=== PATIENT | female | born 1970 | race Caucasian/White ===

== ENCOUNTER → 2017-10-07 07:39 | Outpatient (CLI) | payer OTHER, SELFPAY ==
[2017-10-07 10:25] LABS: Estradiol 42.9 pg/mL
[2017-10-07 12:47] LABS: Progesterone Level 6.43 ng/mL (See Comment)
== END ==
PROVIDERS: Family Provider Nurse Practitioner; PCP Nurse Practitioner; Visit Provider Specialist
DX: N95.1 Menopausal and female climacteric states (principal)
CPT/HCPCS: 36415; 82670; 84144; 84403

== ENCOUNTER 2018-10-08 08:11 | Emergency (ER) | payer OTHER, SELFPAY ==
[2018-10-08 08:12] VITALS: BP 132/72; PULSE 80; RESP 16; TEMP 36; BMI 26.6
[2018-10-08] MEDS: dexAMETHasone 4 MG Tablet 8 MG PO (08:40)
--- NOTE | 2018-10-08 08:40 | ED.VIS.GEN ---
History of Present Illness Chief Complaint: Allergic Reaction Informant: Patient Onset: Yesterday Current Severity: Mild Narrative: Patient presents complaining of right upper eyelid type swelling that occurred yesterday immediately as she states she was bitten by a flying insect and felt the sting, she had some swelling this morning the swelling persisted she came in for evaluation, she did not see the insect but immediately felt the sting, she has no systemic symptoms, she has no change in vision shortness of breath, she denies any past history no medications Past Medical History - Allergies and Home Meds Allergies/Adverse Reactions: Allergies No Known Allergies Allergy (Verified 10/08/18 08:15) Primary Care Physician: Estrellita Ni NP-C [Primary Care Provider] - Past Medical History: None Smoking Status: Former smoker Review of Systems General: Reports: - - See above. Denies: Chills, Fever, Sweats Eyes: Denies: Visual changes - bilaterally, Diplopia ENT: Denies: Rhinorrhea, Sore throat Cardiovascular: Denies: Chest pain, Palpitations Respiratory: Denies: Dyspnea, Cough, Dyspnea on exertion Gastrointestinal: Denies: Abdominal pain, Nausea, Vomiting, Diarrhea, Melena, Hematochezia Genitourinary: Denies: Dysuria, Hematuria, Frequency Musculoskeletal: Denies: Back pain, Extremity Pain Skin: Denies: Rash, Wounds Neurological: Denies: Headache, Weakness, Numbness Physical Exam Vital Signs/Narrative: Vital Signs Temp Pulse Resp BP 10/08/18 08:12 96.8 F L 80 16 132/72 H General: Well nourished, Well developed, No Acute Distress Head: Normocephalic, Atraumatic Eyes: Perrl, EOMI, - - He has edema and allergic type reaction of the skin involving the right upper brow minimally to the right upper lid there is no fluctuance crepitance warmth or signs of infection the eye exam is entirely unremarkable normal vision normal conjunctiva normal pupillary and extra muscle movements the rest of her face HEENT exam are entirely unremarkable ENT: Moist mucous membranes, No rhinorrhea Neck: Supple, Nontender Cardiovascular: Regular rate, Regular rhythm, No murmurs Respiratory: No distress, CTA bilaterally, Chest nontender Abdomen: Soft, Nontender, Nondistended, Normal bowel sounds Back: Nontender, Normal Inspection Extremities: Nontender, No edema Skin: Normal color, No rash Neurological: Alert, Oriented x3, Cranial nerves II-XII grossly intact, Normal Strength, Normal Sensation Psychological: Normal affect, Normal Mood Diagnostic/Tx/Re-eval - Medical Decision Making I had a long conversation to her she seems to have a localized reaction distention given oral Decadron she will use [id number] antihistamines ice hydrocortisone locally and follow-up with your family doctor as is in the day and return for change in symptoms Home stable Allergic reaction right brow upper eyelid ED Disposition - Plan for ED Patient: Diagnosis: Allergic reaction Instructions: ALLERGIC REACTION, Other (Local), ALLERGIC REACTION, Insect (General) Referrals: Estrellita Ni, DIGITAL HARDWARE DESIGN ENGINEER-C [Primary Care Provider] -
== END 2018-10-08 08:49 | disposition home or self-care (01) ==
LOC: ED 08:46
PROVIDERS: Emergency Provider Emergency Medicine; Family Provider Nurse Practitioner; PCP Nurse Practitioner
DX: T63.481A Toxic effect of venom of other arthropod, accidental (unintentional), initial encounter (principal); R22.0 Localized swelling, mass and lump, head; Y92.9 Unspecified place or not applicable; Z87.891 Personal history of nicotine dependence
CPT/HCPCS: 99283

== ENCOUNTER → 2018-10-17 | Outpatient (CLI) | payer OTHER, SELFPAY ==
[2018-10-08 08:12] VITALS: BMI 26.6
[2018-10-17 10:34] LABS: Progesterone Level 0.07 ng/mL (See Comment); Vitamin B12 734 pg/mL (211-911); Vitamin D,25 Hydroxy 23.2 ng/mL (29.95-100.01)
[2018-10-17 10:42] LABS: Estradiol < 11.0 pg/mL; Follicle Stimulating Hormone 123.5 mIU/mL; Thyroid Stim Hormone (TSH) 1.35 uIU/mL (0.358-3.74)
[2018-10-18 11:04] LABS: DHEA Sulfate 79.1 ug/dL (41.2-243.7)
== END | disposition home or self-care (01) ==
LOC: MTLAB 08:43
PROVIDERS: Family Provider Nurse Practitioner; PCP Nurse Practitioner; Referring Provider Specialist; Visit Provider Specialist
DX: E55.9 Vitamin D deficiency, unspecified (principal); N95.8 Other specified menopausal and perimenopausal disorders; R53.83 Other fatigue
CPT/HCPCS: 36415; 82306; 82607; 82627; 82670; 83001; 84144; 84403; 84443; 82626

== ENCOUNTER → 2019-03-23 11:03 | Outpatient (CLI) | payer OTHER, SELFPAY | PROVIDERS: Family Provider Nurse Practitioner; PCP Nurse Practitioner; Referring Provider Nurse Practitioner; Visit Provider Nurse Practitioner | DX: R00.2 Palpitations (principal) | CPT/HCPCS: 93225; 93226 ==

== ENCOUNTER → 2019-05-17 20:00 | Outpatient (CLI) | payer OTHER, SELFPAY ==
[2019-05-08 14:59] VITALS: BMI 29.7
== END ==
PROVIDERS: PCP Nurse Practitioner; Referring Provider Internal Medicine Cardiovascular Disease; Visit Provider Internal Medicine Cardiovascular Disease
DX: G47.10 Hypersomnia, unspecified (principal); R53.83 Other fatigue; R00.2 Palpitations; R06.83 Snoring
CPT/HCPCS: 95810

== ENCOUNTER → 2019-05-25 15:06 | Outpatient (CLI) | payer OTHER, SELFPAY ==
[2019-05-08 14:59] VITALS: BMI 29.7
--- NOTE | 2019-05-25 15:09 | ECHOD_ITS ---
Reason For Study: PALPITATIONS Procedure This was a 2D Doppler, Color Flow transthoracic echocardiogram. Exam performed in department. Left Ventricle Normal size and thickness. The estimated ejection fraction is 65 %. Normal diastology for age. No regional wall motion abnormalities noted. Right Ventricle Mildly dilated right ventricle. Normal systolic function. Atria Normal left atrium. Normal right atrium. Normal atrial septum. Mitral Valve The mitral valve is structurally normal. No prolapse or stenosis seen. Tricuspid Valve Normal tricuspid valve. Mild (1+) tricuspid valve insufficiency. Right ventricular systolic pressure estimated to be 25 mmHg. Aortic Valve Normal aortic valve. Trisinus/trileaflet aortic valve. Pulmonic Valve Normal pulmonic valve. Great Vessels Normal aortic root. Normal arch. Normal inferior vena cava. Inferior vena cava collapse with sniff. Pericardium/Pleural No pericardial effusion. MMode/2D Measurements & Calculations LVIDd: 4.3 cm IVSd: 0.93 cm Ao root diam: 3.1 cm LVIDs: 2.6 cm LVPWd: 0.83 cm RVDd: 3.7 cm FS: 39.1 % LAV(MOD-bp): 43.4 ml LA A4 area: 16.8 cm2 LA dimension(2D): 3.9 cm LAV(MOD-bp) Indexed: 23.0 ml/m2 LAV(MOD-sp2): 44.4 ml LAV(MOD-sp4): 40.6 ml RA A4 area: 14.0 cm2 Time Measurements MV dec time: 0.18 sec Doppler Measurements & Calculations MV E max jossue: 71.9 cm/sec Lat Peak E' Jossue: 11.9 cm/sec Med Peak E' Jossue: 9.4 cm/sec MV A max jossue: 53.8 cm/sec E/E' lat: 6.1 E/E' med: 7.7 MV E/A: 1.3 Ao V2 max: 150.8 cm/sec LV V1 max: 150.8 cm/sec PA V2 max: 103.8 cm/sec Ao max P.1 mmHg LV V1 max P.1 mmHg TR max jossue: 223.2 cm/sec TR max P.9 mmHg Interpretation Summary The estimated ejection fraction is 65 %. Normal diastology for age. Mildly dilated right ventricle. Mild (1+) tricuspid valve insufficiency. Right ventricular systolic pressure estimated to be 25 mmHg. There is no comparison study available. Ordering Physician: Pop Castillo Referring Physician: STEPHANIE YOUNGBLOOD Performed By: Teresita Osborne, FARRUKH, RVT
== END ==
PROVIDERS: PCP Nurse Practitioner; Referring Provider Internal Medicine Cardiovascular Disease; Visit Provider Internal Medicine Cardiovascular Disease
DX: G47.10 Hypersomnia, unspecified (principal); R00.2 Palpitations
CPT/HCPCS: 93306

== ENCOUNTER → 2019-07-19 13:10 | Outpatient (CLI) | payer OTHER, SELFPAY ==
[2019-06-11 07:43] VITALS: BMI 29.7
== END ==
PROVIDERS: PCP Nurse Practitioner; Visit Provider Nurse Practitioner Acute Care
DX: Z00.00 Encounter for general adult medical examination without abnormal findings (principal)

== ENCOUNTER → 2019-07-20 11:43 | Outpatient (CLI) | payer OTHER, SELFPAY ==
[2019-06-11 07:43] VITALS: BMI 29.7
== END ==
PROVIDERS: PCP Nurse Practitioner; Visit Provider Nurse Practitioner Acute Care
DX: Z00.00 Encounter for general adult medical examination without abnormal findings (principal)

== ENCOUNTER 2019-08-19 05:12 | Emergency (ER) | payer OTHER, SELFPAY ==
[2019-06-11 07:43] VITALS: BMI 29.7
[2019-08-19 05:13] VITALS: BP 141/77; PULSE 75; RESP 16; TEMP 36.9; O2SAT 99; BMI 29.0
--- NOTE | 2019-08-19 05:34 | CT_ITS ---
STUDY: CT ABDOMEN AND PELVIS WITHOUT CONTRAST REASON FOR EXAM: Female, 48 years old. ABD PAIN X 5 DAYS RADIATION DOSAGE (If Supplied By Facility): CTDIvol = ( 10.47 ) mGy, DLP = ( 470.93 ) mGycm TECHNIQUE: Transaxial images were obtained from the dome of the diaphragm to the symphysis pubis without oral contrast, and without intravenous contrast. Sagittal and coronal images were reconstructed. Individualized dose optimization techniques were used for this CT. COMPARISON: None. FINDINGS: The visualized lung bases are unremarkable. The visualized portions of the heart are within normal limits. Normal liver. Normal gallbladder and extrahepatic biliary system. Normal spleen. Normal pancreas. Normal bilateral adrenal glands. Normal right kidney. Normal left kidney. Normal visualized stomach. Normal small intestine. Normal colon. The appendix is not identified. Normal abdominal aorta. Normal inferior vena cava. Normal retroperitoneum. Normal urinary bladder. Uterus and ovaries are unremarkable. There is NO ascites, free air, abscess or adenopathy. Normal abdominal wall. Normal osseous structures. CT/Abdomen/Pelvis without Cont IMPRESSION: Normal unenhanced CT of the abdomen and pelvis. Electronically Signed: Syed Lambert MD at 6:10 EDT , Service support ,
--- NOTE | 2019-08-19 05:37 | ED.VIS.GEN ---
History of Present Illness Chief Complaint: Back Informant: Patient Onset: Weeks - 1 Timing: Continuous Current Severity: Moderate Maximum Severity: Moderate Narrative: Patient presents with bilateral flank pain radiating to her lower abdominal region bilaterally for about a week. She denies fever chills cough or congestion she said this pain is worse when she takes a deep breath but she has no chest pain her pain is below her ribs in the flank region and lower back region as well as lower abdomen she has no fever chills cough congestion she has no difficulty breathing she has no lower extremity edema calf pain or any DVT or PE risk factors. She has no dysuria or hematuria she denies constipation, there is no diarrhea, there is no nausea or vomiting. The pain is somewhat worse with movement bending or twisting. Past Medical History - Allergies and Home Meds Allergies/Adverse Reactions: Allergies No Known Allergies Allergy (Verified 08/19/19 05:13) Primary Care Physician: Estrellita Ni NP-C [Primary Care Provider] - Past Medical History: - - Reviewed and unremarkable Smoking Status: Current every day smoker Review of Systems All systems negative except as indicated General: Denies: Fever Cardiovascular: Denies: Chest pain Respiratory: Denies: Dyspnea, Cough Gastrointestinal: Reports: Abdominal pain. Denies: Nausea, Vomiting, Diarrhea, Constipation Genitourinary: Denies: Dysuria, Hematuria Musculoskeletal: Reports: Back pain. Denies: Myalgias Skin: Denies: Rash Neurological: Denies: Headache, Weakness Endocrine: Denies: Polyuria Allergy: Denies: Uticaria Physical Exam Vital Signs/Narrative: Vital Signs Temp Pulse Resp BP Pulse Ox 08/19/19 05:13 98.4 F 75 16 141/77 H 99 General: Well nourished, Obese Eyes: Perrl, EOMI ENT: Moist mucous membranes Cardiovascular: Regular rate, Regular rhythm Respiratory: No distress, CTA bilaterally Abdomen: Soft, - - There is bilateral lower abdominal tenderness, there is no epigastric tenderness. The abdominal pain radiates into the back region bilaterally, this is at the CVA region and below. Back: - - No spinal tenderness, there is no tenderness over the rib region. Extremities: No edema Skin: No rash Neurological: Alert Psychological: Normal affect Diagnostic/Tx/Re-eval - Medical Decision Making Patient has abdominal pain and back pain, she has no chest pain or shortness of breath she does have a pleuritic component to this lower abdominal pain, I believe this is purely mechanical, I have thought about DVT or PE but she has no risk factors she is not tachycardic, she has no chest pain back pain or difficulty breathing. Otherwise she has a normal emergency department work-up she appears well I will discharge her with reassurance. ED Disposition - Plan for ED Patient: Disposition: Home or Assisted Living Diagnosis: Abdominal pain Referrals: Estrellita Ni NP-C [Primary Care Provider] - 3-5 Days Additional Instructions: Follow-up with your doctor for further testing otherwise in the emergency department urine had any signs or symptoms of any abdominal disorders. If you have chest pain or shortness of breath return right away to the emergency department.
[2019-08-19 06:02] LABS: Bacteria 0 SEEN /hpf (None Seen); Mucous, Urine 0 SEEN /hpf (<or=2+); Red Blood Cells-Urine 0 SEEN /hpf (0-5); White Blood Cells 0 SEEN /hpf (0-5)
[2019-08-19 06:03] LABS: Absolute Neutrophil Count 5.2 X10^3/uL (2.0-7.7); Basophil# 0.04 X10^3/uL; Basophil% 0.4 % (0-1); Eosinophil# 0.07 X10^3/uL; Eosinophils% 0.7 % (0-5); Hematocrit 40.3 % (37-47); Hemoglobin 13.3 g/dL (12.0-15.0); Lymphocyte % 35.9 % (19-41); Mean Corpuscular Hgb 31.8 pg (27.0-32.0); Mean Corpuscular Volume 96.4 fL (81-99); Mean Platelet Vol. 11.9 fl (6.2-12.0); Monocyte# 0.89 X10^3/uL; Monocyte% 9.1 % (0-10); NRBC Flagged by Analyzer 0 % (0-5); Neutrophil # 5.23 X10^3/uL (2.7-7.7); Neutrophil % 53.6 % (47-70); Platelet Count 166 K/mm3 (150-450); RBC Distribution Width CV 13.9 % (11.6-14.6); RBC Distribution Width SD 49.2 fl (35.1-43.9); Red Blood Count 4.18 M/mm3 (4.2-5.4); White Blood Count 9.8 K/mm3 (4.4-11.0)
[2019-08-19 06:04] LABS: Color, Urine Straw (Yellow); Glucose, Dipstick Normal (Normal); Ketone-Dipstick Negative (Negative); Leukocyte Esterase-Dipstick Negative /ul (Negative); Nitrite-Dipstick Negative (Negative); Occult Blood-Urine Negative /ul (Negative); Protein-Dipstick Negative (Negative); Specific Gravity, Urine 1.005 (1.002-1.030); Urine Bilirubin Dipstick Negative (Negative); Urine Clarity Sl. Cloudy (Clear); Urine Urobilinogen Normal (Normal)
[2019-08-19 06:21] LABS: AST(SGOT) 23 U/L (15-37); Alanine Aminotransfer ALT/SGPT 32 U/L (13-56); Albumin, Serum 3.3 g/dL (3.2-5.0); Alkaline Phosphatase 62 U/L (45-117); Anion Gap 6 (5-15); BUN 14 mg/dL (7-18); BUN/Creat Ratio 21.5 RATIO (10-20); Calcium,Total 9.2 mg/dL (8.5-10.1); Chloride 108 mmol/L (98-107); Creatinine, Serum 0.65 mg/dL (0.55-1.02); EST Glomerular Filtration Rate 102 mL/min (>60); Est Glom Filt Rate - Afr Amer 124 mL/min (>60); Estimated Creatinine Clearance 96.93 ml/min; Globulin 3.4 g/dL (2.2-4.2); Glucose 95 mg/dL (74-106); Lipase 101 U/L (73-393); Potassium 3.8 mmol/L (3.5-5.1); Protein, Total 6.7 g/dL (6.4-8.2); Sodium Level 140 mmol/L (136-145)
[2019-08-19 06:26] LABS: Squamous Epithelial Cells - UA 0-5 SEEN /hpf (5-10)
[2019-08-19 06:46] VITALS: BP 115/71; PULSE 63; RESP 18; O2SAT 97
== END 2019-08-19 07:04 | disposition home or self-care (01) ==
PROVIDERS: Emergency Provider Emergency Medicine; PCP Nurse Practitioner
DX: R10.30 Lower abdominal pain, unspecified (principal); F17.200 Nicotine dependence, unspecified, uncomplicated; E66.9 Obesity, unspecified
CPT/HCPCS: 74176; 80053; 81001; 83690; 85025; 96374; 96375; 99283; A4216; J2405

== ENCOUNTER 2020-09-16 19:30 | Emergency (ER) | payer OTHER, SELFPAY ==
[2020-09-16 19:31] VITALS: BP 134/71; PULSE 88; RESP 18; TEMP 36.2; O2SAT 100; BMI 29.7
[2020-09-16 20:17] LABS: Bacteria 0 SEEN /hpf (None Seen); Mucous, Urine 0 SEEN /hpf (<or=2+); Red Blood Cells-Urine 0 SEEN /hpf (0-5); Squamous Epithelial Cells - UA 0 SEEN /hpf (5-10)
[2020-09-16 20:18] LABS: Absolute Lymphocyte Count 4.83 X10^3/uL (0.83-4.51); Absolute Neutrophil Count 6.9 X10^3/uL (2.0-7.7); Basophil# 0.05 X10^3/uL; Basophil% 0.4 % (0-1); Eosinophils% 0.8 % (0-5); Hematocrit 42.6 % (37-47); Hemoglobin 13.8 g/dL (12.0-15.0); Lymphocyte # 4.83 X10^3/ul (0.83-4.51); Lymphocyte % 37.6 % (19-41); Mean Corp Hgb Conc 32.4 g/dL (32-36); Mean Corpuscular Hgb 31.7 pg (27.0-32.0); Mean Corpuscular Volume 97.7 fL (81-99); Mean Platelet Vol. 11.5 fl (6.2-12.0); Monocyte# 0.87 X10^3/uL; Monocyte% 6.8 % (0-10); NRBC Flagged by Analyzer 0 % (0-5); Neutrophil # 6.94 X10^3/uL (2.7-7.7); Platelet Count 214 K/mm3 (150-450); RBC Distribution Width CV 13.6 % (11.6-14.6); RBC Distribution Width SD 49.2 fl (35.1-43.9); Red Blood Count 4.36 M/mm3 (4.2-5.4); White Blood Count 12.8 K/mm3 (4.4-11.0)
[2020-09-16 20:24] LABS: Color, Urine Yellow (Yellow); Glucose, Dipstick Normal (Normal); Ketone-Dipstick Negative (Negative); Leukocyte Esterase-Dipstick 100 /ul (Negative); Nitrite-Dipstick Negative (Negative); Occult Blood-Urine Negative /ul (Negative); Protein-Dipstick Negative (Negative); Urine Bilirubin Dipstick Negative (Negative); Urine Clarity Clear (Clear); Urine Urobilinogen Normal (Normal)
[2020-09-16 20:32] LABS: Internal QC Validated? YES +Cl - CLEAR BKGD; Pregnancy, Serum, hCG Quali. NEGATIVE Negative
[2020-09-16 20:35] LABS: Anion Gap 6 (5-15); BUN 13 mg/dL (7-18); BUN/Creat Ratio 15.9 RATIO (10-20); Calcium,Total 9.9 mg/dL (8.5-10.1); Chloride 108 mmol/L (98-107); Creatinine, Serum 0.82 mg/dL (0.55-1.02); EST Glomerular Filtration Rate 78 mL/min (>60); Est Glom Filt Rate - Afr Amer 94 mL/min (>60); Estimated Creatinine Clearance 75.98 ml/min; Glucose 98 mg/dL (74-106); Potassium 3.8 mmol/L (3.5-5.1); Sodium Level 144 mmol/L (136-145)
[2020-09-16 20:36] LABS: White Blood Cells 0-5 SEEN /hpf (0-5)
--- NOTE | 2020-09-16 20:53 | CT_ITS ---
STUDY: CT ABDOMEN AND PELVIS WITH CONTRAST REASON FOR EXAM: Female, 49 years old. Abdominal pain RADIATION DOSAGE (If Supplied By Facility): CTDIvol = ( 13.185 ) mGy, DLP = ( 808.06 ) mGycm TECHNIQUE: Transaxial images were obtained from the dome of the diaphragm to the symphysis pubis without oral contrast. IV 100mL Isovue-370 was administered. Sagittal and coronal images were reconstructed. Individualized dose optimization techniques were used for this CT. COMPARISON: August 19, 2019 FINDINGS: The visualized lung bases are unremarkable. The visualized portions of the heart are within normal limits. Normal liver. The gallbladder is contracted. Normal spleen. Normal pancreas. Normal bilateral adrenal glands. Normal right kidney. Normal left kidney. Normal visualized stomach. Normal small intestine. Normal colon. The appendix is visualized and appears normal. Normal abdominal aorta. Normal inferior vena cava. Normal retroperitoneum. Normal urinary bladder. Normal visualized uterus. There is no free fluid in the abdomen or pelvis. Normal abdominal wall. Normal osseous structures. CT/Abdomen/Pelvis W IV Cont ONLY IMPRESSION: Normal enhanced CT of the abdomen and pelvis. No mass or obstruction. No stones or hydronephrosis. Electronically Signed: Arik Virk MD at 21:43 EDT , Service support ,
--- NOTE | 2020-09-16 20:55 | ED.VIS.GI ---
HPI HPI - GI History of Present Illness Chief Complaint: Abd Pain Narrative Narrative: 49-year-old female presenting with abdominal pain. She describes it as starting on the left lower abdomen and then gradually progressing to both sides of the abdomen anteriorly. Now it is radiating to the bilateral flanks. She states when she takes a deep breath this pain gets worse. She denies constipation. She states she is passing flatus. She does admit to some loose stool. She has not had a fever or chills. She has not had nausea or vomiting. She has no previous abdominal surgeries. PFSH PFS Medical History Balance disorder Dizziness Fatigue Hyperlipidemia Hypersomnia Lightheaded Palpitations Snoring Home Medications sertraline 50 mg PO DAILY 10/08/18 [History Last Taken Unknown] cholecalciferol (vitamin D3) 50 mcg (2,000 unit) tablet 2,000 unit PO QWEEK 05/07/19 [History Last Taken Unknown] Allergy/AdvReac Type Severity Reaction Status Date / Time No Known Allergies Allergy Verified 09/16/20 19:31 Family History Grandmother Hypertension Grandfather Alcoholism Social History Smoking Status: Current every day smoker tobacco type: cigarettes ROS ROS ED Constitutional Constitutional ED: Denies chills, fever(s) or sweats Eyes Eyes: Denies blurry vision or change in vision ENT ENT ED: Denies ear pain, rhinorrhea or sore throat Cardiovascular Cardiovascular: Denies chest pain, palpitations or racing heartbeat Respiratory/Chest Respiratory/Chest: Denies cough, dyspnea or sputum Gastrointestinal Gastrointestinal: Reports abdominal pain and diarrhea; Denies constipation or vomiting Genitourinary Genitourinary ED: Denies dysuria, hematuria or urinary frequency Musculoskeletal Musculoskeletal: Denies arthralgias, myalgias or neck pain Integumentary Denies abscess, Abrasions or rash Neurologic Neurologic: Denies headache(s), paresthesias or weakness Psychiatric Psychiatric: Denies anxiety, depression, suicidal ideation or suicidal thoughts Endocrine Endocrinology: Denies polydipsia or polyuria EXAM Physical Exam Const Vital Signs: 09/16/20 19:31 Temperature 97.1 F L Temperature Source Temporal Pulse Rate 88 Respiratory Rate 18 Blood Pressure 134/71 H Blood Pressure Mean 92 Pulse Ox 100 Oxygen Delivery Method Room Air Positive well nourished General Appearance ED: NAD HEENT normocephalic and atraumatic Eyes PERRL and EOMs intact bilaterally Resp normal respiratory effort and clear to auscultation bilaterally Cardio regular rate and regular rhythm GI Inspection: abdominal distention Palpation: soft Extremity full ROM General Extremety ED: Yes edema General Extremity: edema Neuro Sensorium / Orientation: alert, oriented to person and oriented to place Psych mental status grossly normal and thought process normal Skin Lesions: no lesions Rashes: no rashes MDM MDM MDM Narrative Medical decision making narrative: Patient presenting for abdominal pain. She was given morphine and Zofran with relief of her pain. Her lab work so she has a slight leukocytosis of 12.8 without a left shift. Renal function electrolytes are normal. hCG is negative. Urinalysis is negative. CT of the abdomen and pelvis is interpreted by the radiologist as no acute intra-abdominal process. The source of the patient's pain is unclear at this point. I feel she is safe to be discharged home however since she has normal vital signs and a negative work-up. Patient is given return precautions. Impression: 1. Abdominal pain Lab Data Labs: Laboratory Results - last 24 hr 09/16/20 09/16/20 09/16/20 20:10 20:10 20:10 WBC 12.8 H RBC 4.36 Hgb 13.8 Hct 42.6 MCV 97.7 MCH 31.7 MCHC 32.4 RDW Std Deviation 49.2 H RDW Coeff of Cheryle 13.6 Plt Count 214 MPV 11.5 Immature Gran % (Auto) 0.400 Neut % (Auto) 54.0 Lymph % (Auto) 37.6 [place] % (Auto) 6.8 Eos % (Auto) 0.8 Baso % (Auto) 0.4 Absolute Neuts (auto) 6.9 Absolute Lymphs (auto) 4.83 H Nucleated RBC % 0 Sodium 144 Potassium 3.8 Chloride 108 H Carbon Dioxide 30.0 Anion Gap 6 BUN 13 Creatinine 0.82 Estim Creat Clear Calc 75.98 Est GFR (MDRD) Af Amer 94 Est GFR (MDRD) Non-Af 78 BUN/Creatinine Ratio 15.9 Glucose 98 Calcium 9.9 Serum , Qual NEGATIVE Urine Color Urine Clarity Urine pH Ur Specific [place] Urine Protein Urine Glucose (UA) Urine Ketones Urine Occult Blood Urine Nitrite Urine Bilirubin Urine Urobilinogen Ur Leukocyte Esterase Urine RBC Urine WBC Ur Squamous Epith Cells Urine Bacteria Urine Mucus 09/16/20 20:10 WBC RBC Hgb Hct MCV MCH MCHC RDW Std Deviation RDW Coeff of Cheryle Plt Count MPV Immature Gran % (Auto) Neut % (Auto) Lymph % (Auto) [place] % (Auto) Eos % (Auto) Baso % (Auto) Absolute Neuts (auto) Absolute Lymphs (auto) Nucleated RBC % Sodium Potassium Chloride Carbon Dioxide Anion Gap BUN Creatinine Estim Creat Clear Calc Est GFR (MDRD) Af Amer Est GFR (MDRD) Non-Af BUN/Creatinine Ratio Glucose Calcium Serum , Qual Urine Color Yellow Urine Clarity Clear Urine pH 7.0 Ur Specific [place] 1.010 Urine Protein Negative Urine Glucose (UA) Normal Urine Ketones Negative Urine Occult Blood Negative Urine Nitrite Negative Urine Bilirubin Negative Urine Urobilinogen Normal Ur Leukocyte Esterase 100 H Urine RBC 0 SEEN Urine WBC 0-5 SEEN Ur Squamous Epith Cells 0 SEEN Urine Bacteria 0 SEEN Urine Mucus 0 SEEN Radiography Diagnostic Testing: Radiology Impression Abdomen/Pelvis CT 09/16/20 20:53 IMPRESSION: Normal enhanced CT of the abdomen and pelvis. No mass or obstruction. No stones or hydronephrosis. Electronically Signed: Arik Virk MD at 21:43 EDT , Service support , Discharge Plan Triage Chief Complaint: Abd Pain ED Provider: Leighton Finnegan Dx/Rx/DC Orders Instructions: ED Abdominal Pain Unkn Cause Fem Prescriptions: No Action cholecalciferol (vitamin D3) 2,000 unit tablet 2,000 unit PO QWEEK RF: 0 sertraline 50 MG tablet 50 mg PO DAILY RF: 0 Primary Care Provider: Estrellita Ni NP Referrals: Estrellita Ni OPTICAL INSTRUMENT ASSEMBLY SUPERVISOR, OPTICAL INSTRUMENT ASSEMBLY SUPERVISOR-C [Primary Care Provider] - Disposition Disposition: Home, self care Discharge Date/Time: 09/16/20 22:39
== END 2020-09-16 22:39 | disposition home or self-care (01) ==
LOC: ED 21:26
PROVIDERS: Emergency Provider Student in an Organized Health Care Education/Training Program; PCP Nurse Practitioner
DX: R10.9 Unspecified abdominal pain (principal); F17.210 Nicotine dependence, cigarettes, uncomplicated; R19.7 Diarrhea, unspecified; Z79.899 Other long term (current) drug therapy
CPT/HCPCS: 74177; 80048; 81001; 84703; 85025; 99283; Q9967; A4216

== ENCOUNTER 2022-06-25 17:36 | Emergency (ER) | payer OTHER, SELFPAY ==
[2022-06-25 17:37] VITALS: BP 144/84; PULSE 81; RESP 18; TEMP 36.6; O2SAT 99; BMI 28.2
--- NOTE | 2022-06-25 19:06 | EDS_ITS ---
HPI HPI - GI History of Present Illness Chief Complaint: Abd Pain Narrative Narrative: 51-year-old female presenting with abdominal pain. She describes it as diffuse and crampy. She states it feels like contractions. Patient states this has been coming and going since about 2 PM today. Last meal was this morning when she ate eggs, abdul, ice cream. This was about 8:00 in the morning and her pain started several hours later. No fevers, chills, body aches. She states she has soft stool but is not constipated. No urinary complaints or vaginal complaints. Patient states she had this several months ago and it lasted about a day. She never went to a doctor for it. She states it resolved on its own. No history of abdominal surgeries. She states she has no medical problems. PFSH PFSH Medical History Balance disorder Dizziness Fatigue Hyperlipidemia Hypersomnia Lightheaded Palpitations Snoring Home Medications sertraline 50 mg tablet 50 mg PO DAILY 10/08/18 [History Last Taken Unknown] cholecalciferol (vitamin D3) 50 mcg (2,000 unit) tablet 2,000 unit PO QWEEK 05/07/19 [History Last Taken Unknown] dicyclomine 10 mg capsule 10 mg PO TID PRN Abdominal cramping #14 caps 06/25/22 [Rx Last Taken Unknown] ondansetron 4 mg disintegrating tablet 4 mg PO Q8H PRN PRN Nausea #14 tabs 06/25/22 [Rx Last Taken Unknown] Allergy/AdvReac Type Severity Reaction Status Date / Time No Known Allergies Allergy Verified 06/25/22 17:39 Family History Grandmother Hypertension Grandfather Alcoholism Social History Smoking Status: Current every day smoker tobacco type: cigarettes ROS ROS ED Constitutional Constitutional ED: Denies chills or fever(s) ENT ENT ED: Denies rhinorrhea or sore throat Cardiovascular Cardiovascular: Denies chest pain or palpitations Respiratory/Chest Respiratory/Chest: Denies cough or dyspnea Gastrointestinal Gastrointestinal: Reports abdominal pain, nausea and vomiting Genitourinary Genitourinary ED: Denies dysuria or hematuria Musculoskeletal Musculoskeletal: Denies arthralgias or back pain Integumentary Denies abscess or Abrasions Neurologic Neurologic: Denies headache(s) or paresthesias Psychiatric Psychiatric: Denies anxiety or depression EXAM Physical Exam Const Vital Signs: 06/25/22 17:37 06/25/22 21:25 Temperature 98 F Temperature Source Temporal Pulse Rate 81 64 Respiratory Rate 18 16 Blood Pressure 144/84 H 138/82 H Blood Pressure Mean 104 100 Pulse Ox 99 99 Oxygen Delivery Method Room Air Room Air Positive well nourished General Appearance ED: NAD; Negative for pallor HEENT Reports moist mucous membranes normocephalic Eyes PERRL General Eye ED: Yes scleral icterus Resp normal respiratory effort Effort and Inspection: Negative for respiratory distress Cardio regular rate and regular rhythm GI GI Narrative: Diffuse generalized tenderness. Abdomen is soft. No rebound or guarding. No masses. No hernia. Neuro CN's II-XII intact bilaterally Sensorium / Orientation: alert Psych mental status grossly normal Skin no wounds General Skin Exam: Negative for jaundice or pallor MDM MDM MDM Narrative Medical decision making narrative: Patient presenting with abdominal pain which is fairly diffuse. She describes nausea and vomiting as well. Abdomen is soft nontender nondistended. No focal area of pain. No Teran sign. No McBurney point tenderness. No peritoneal signs. Differential includes but is not limited to GERD, gastritis, peptic ulcer disease, acute cholecystitis, acute cholelithiasis, appendicitis, diverticulitis, pancreatitis, small bowel obstruction, perforated bowel, viral etiology, food poisoning. Patient states he has had this pain before and it went away on its own. She was told by her primary care that she should probably take a [id number] antacid. Less likely felt to be her gallbladder because she does not have rivas right upper quadrant pain. CBC to assess white blood cell count, hemoglobin, platelets, differential. CMP to assess liver function, renal function, electrolytes, glucose, anion gap. Lipase to assess for pancreatitis. Medicated with 4 mg of morphine and 4 mg of Zofran. She is given a liter of normal saline. Patient's blood work shows a normal white blood cell count. Hemoglobin macular stable. Platelets are normal. Renal function, liver function, electrolytes all within normal limits. Urinalysis negative. I do not believe the patient needs a CT scan of the abdomen given her normal blood work- up. On reevaluation she is pain-free and states she is high from the morphine. After discussing this with she and her her tells me she has severe gas and he is concerned that this might be causing the problem. I did school counselor him that this could be causing a problem because her blood work was normal. I again stated I do not think they needed a CT scan and they agree d. Patient was given Zofran and Bentyl for home. She already takes Gas-X. Return precautions were discussed. Impression: 1. Abdominal pain 2. Nausea/vomiting Lab Data Labs: Laboratory Results - last 24 hr 06/25/22 06/25/22 06/25/22 19:13 19:13 20:15 WBC 9.7 RBC 4.36 Hgb 13.8 Hct 42.0 MCV 96.3 MCH 31.7 MCHC 32.9 RDW Std Deviation 46.8 H RDW Coeff of Cheryle 13.2 Plt Count 208 MPV 11.1 Immature Gran % (Auto) 0.300 Neut % (Auto) 66.1 Lymph % (Auto) 22.6 [place] % (Auto) 10.1 H Eos % (Auto) 0.5 Baso % (Auto) 0.4 Absolute Neuts (auto) 6.4 Absolute Lymphs (auto) 2.19 Nucleated RBC % 0 Sodium 140 Potassium 4.0 Chloride 109 H Carbon Dioxide 28.0 Anion Gap 3 L BUN 11 Creatinine 0.69 Estim Creat Clear Calc 88.27 Est GFR (MDRD) Af Amer 115 Est GFR (MDRD) Non-Af 95 BUN/Creatinine Ratio 16.0 Glucose 103 Calcium 9.6 Total Bilirubin 0.20 AST 29 ALT 40 Alkaline Phosphatase 86 Total Protein 7.1 Albumin 3.6 Globulin 3.5 Albumin/Globulin Ratio 1.0 Lipase 114 Urine Color Yellow Urine Clarity Sl. Cloudy Urine pH 7.0 Ur Specific [place] 1.010 Urine Protein Negative Urine Glucose (UA) Normal Urine Ketones Negative Urine Occult Blood Negative Urine Nitrite Negative Urine Bilirubin Negative Urine Urobilinogen Normal Ur Leukocyte Esterase 25 H Urine RBC 0 SEEN Urine WBC 0-5 SEEN Ur Squamous Epith Cells 5-10 SEEN Amorphous Sediment 1+ Urine Bacteria 0 SEEN Urine Mucus 0 SEEN Discharge Plan Triage Chief Complaint: Abd Pain ED Provider: Leighton Finnegan Dx/Rx/DC Orders Instructions: ED Abdominal Pain Unkn Cause Fem Prescriptions: New dicyclomine 10 mg capsule 10 mg PO TID PRN (Reason: Abdominal cramping) Qty: 14 0RF ondansetron 4 mg tablet,disintegrating 4 mg PO Q8H PRN PRN (Reason: Nausea) Qty: 14 0RF No Action cholecalciferol (vitamin D3) 2,000 unit tablet 2,000 unit PO QWEEK sertraline 50 MG tablet 50 mg PO DAILY Primary Care Provider: Madeleine Mendez NP Referrals: Estrellita Ni DESIGNER AND PATTERNMAKER, DESIGNER AND PATTERNMAKER-C [Non-Staff] - Disposition Disposition: Home, Self Care Discharge Date/Time: 06/25/22 21:50
[2022-06-25] MEDS: 0.9% Normal Saline 1,000 ML 1000 ML IV (19:18)
[2022-06-25] MEDS: Ondansetron 4 MG/2 ML Vial IV (19:19)
[2022-06-25] MEDS: Morphine 4 MG/ML Syringe IV (19:19)
[2022-06-25 19:20] LABS: Absolute Lymphocyte Count 2.19 X10^3/uL (0.83-4.51); Absolute Neutrophil Count 6.4 X10^3/uL (2.0-7.7); Basophil# 0.04 X10^3/uL; Basophil% 0.4 % (0-1); Eosinophil# 0.05 X10^3/uL; Eosinophils% 0.5 % (0-5); Hemoglobin 13.8 g/dL (12.0-15.0); Lymphocyte # 2.19 X10^3/ul (0.83-4.51); Lymphocyte % 22.6 % (19-41); Mean Corp Hgb Conc 32.9 g/dL (32-36); Mean Corpuscular Hgb 31.7 pg (27.0-32.0); Mean Corpuscular Volume 96.3 fL (81-99); Mean Platelet Vol. 11.1 fl (6.2-12.0); Monocyte# 0.98 X10^3/uL; Monocyte% 10.1 % (0-10); NRBC Flagged by Analyzer 0 % (0-5); Neutrophil # 6.39 X10^3/uL (2.7-7.7); Neutrophil % 66.1 % (47-70); Platelet Count 208 K/mm3 (150-450); RBC Distribution Width CV 13.2 % (11.6-14.6); RBC Distribution Width SD 46.8 fl (35.1-43.9); Red Blood Count 4.36 M/mm3 (4.2-5.4); White Blood Count 9.7 K/mm3 (4.4-11.0)
[2022-06-25 19:49] LABS: AST(SGOT) 29 U/L (15-37); Alanine Aminotransfer ALT/SGPT 40 U/L (13-56); Albumin, Serum 3.6 g/dL (3.2-5.0); Alkaline Phosphatase 86 U/L (45-117); Anion Gap 3 (5-15); BUN 11 mg/dL (7-18); Calcium,Total 9.6 mg/dL (8.5-10.1); Chloride 109 mmol/L (98-107); Creatinine, Serum 0.69 mg/dL (0.55-1.02); EST Glomerular Filtration Rate 95 mL/min (>60); Est Glom Filt Rate - Afr Amer 115 mL/min (>60); Estimated Creatinine Clearance 88.27 ml/min; Globulin 3.5 g/dL (2.2-4.2); Glucose 103 mg/dL (74-106); Lipase 114 U/L (73-393); Protein, Total 7.1 g/dL (6.4-8.2); Sodium Level 140 mmol/L (136-145)
[2022-06-25 20:18] LABS: Bacteria 0 SEEN /hpf (None Seen); Mucous, Urine 0 SEEN /hpf (<or=2+); Red Blood Cells-Urine 0 SEEN /hpf (0-5)
[2022-06-25 20:36] LABS: Color, Urine Yellow (Yellow); Glucose, Dipstick Normal (Normal); Ketone-Dipstick Negative (Negative); Leukocyte Esterase-Dipstick 25 /ul (Negative); Nitrite-Dipstick Negative (Negative); Occult Blood-Urine Negative /ul (Negative); Protein-Dipstick Negative (Negative); Urine Bilirubin Dipstick Negative (Negative); Urine Clarity Sl. Cloudy (Clear); Urine Urobilinogen Normal (Normal)
[2022-06-25 20:45] LABS: Amorphous Sediment 1+; Squamous Epithelial Cells - UA 5-10 SEEN /hpf (5-10); White Blood Cells 0-5 SEEN /hpf (0-5)
[2022-06-25 21:25] VITALS: BP 138/82; PULSE 64; RESP 16; O2SAT 99
== END 2022-06-25 21:50 | disposition home or self-care (01) ==
PROVIDERS: Emergency Provider Student in an Organized Health Care Education/Training Program; PCP Nurse Practitioner Family; Visit Provider Student in an Organized Health Care Education/Training Program
DX: R10.9 Unspecified abdominal pain (principal); R11.2 Nausea with vomiting, unspecified; F17.210 Nicotine dependence, cigarettes, uncomplicated
CPT/HCPCS: 80053; 81001; 83690; 85025; 96361; 96374; 96375; 99282; J7030; A4216; J2405

== ENCOUNTER 2024-04-15 04:45 | Emergency (ER) | payer BC, SELFPAY ==
[2024-04-15 04:47] VITALS: BP 161/88; PULSE 75; RESP 18; TEMP 37.1; O2SAT 99; BMI 26.4
[2024-04-15 04:53] VITALS: O2SAT 99
--- NOTE | 2024-04-15 04:53 | EDS_ITS ---
HPI <Dr. Lyle Hunt DO - Last Filed: 04/16/24 23:12> History of Present Illness Chief Complaint: Chest Pain Informant: patient and spouse/S.O. Narrative Narrative: Presents private vehicle with skin other. Chest heaviness waking her approxi mately 2 AM this morning. Has been 3 hours ago. Mild pain to her back. Nausea with large vomiting there is no hematemesis. She had 3 bowel movements since then that was solid nonbloody. Currently not nauseated. Pain substernal. No history of similar. Tobacco history. Hyperlipidemia. No diabetes or hypertension. Denies family history of MIs at young age. No recent travel or surgeries. No history of PE or DVT. No recent cough. Reports her significant other had a heart attack this past year and was concerned. Patient did take Tums, symptoms subsiding. Last meal for dinner was nearly 12 hours ago. Reported having intermittent chills and sweats. Prior Similar Symptoms: No PFSH <Dr. Lyle Hunt DO - Last Filed: 04/16/24 23:12> PFSH Medical History History of transient ischemic attack Balance disorder Hypersomnia Fatigue Dizziness Lightheaded Snoring Hyperlipidemia Palpitations Home Medications ?Medication ?Instructions ?Recorded ?Last Taken ?Type sertraline 50 mg tablet 50 mg PO DAILY 10/08/18 Unknown History cholecalciferol (vitamin D3) 50 2,000 unit PO QWEEK 05/07/19 Unknown History mcg (2,000 unit) tablet pantoprazole 40 mg tablet,delayed 40 mg PO DAILY #30 tabs 04/15/24 Unknown Rx release Allergy/AdvReac Type Severity Reaction Status Date / Time No Known Allergies Allergy Verified 04/15/24 04:46 Family History Grandmother Hypertension Grandfather Alcoholism Surgical History No pertinent past surgical history Social History Smoking Status: Current every day smoker tobacco type: cigarettes alcohol intake: current substance use type: does not use ROS <Dr. Lyle Hunt DO - Last Filed: 04/16/24 23:12> ROS ED Constitutional Constitutional ED: Denies chills, fever(s) or sweats ENT ENT ED: Denies sore throat Cardiovascular Cardiovascular: Reports chest pain; Denies leg edema, palpitations or racing heartbeat Respiratory/Chest Respiratory/Chest: Denies cough, dyspnea or dyspnea on exertion Gastrointestinal Gastrointestinal: Reports vomiting; Denies abdominal pain, diarrhea or nausea Genitourinary Genitourinary ED: Denies dysuria, hematuria or urinary frequency Musculoskeletal Musculoskeletal: Denies back pain, extremity pain or neck pain Integumentary Denies rash or wounds Neurologic Neurologic: Denies headache(s), paresthesias or weakness EXAM <Dr. Lyle Hunt DO - Last Filed: 04/16/24 23:12> Physical Exam Const Vital Signs: 04/15/24 04:47 04/15/24 04:48 04/15/24 04:53 Temperature 98.7 F Temperature Source Oral Pulse Rate 75 Respiratory Rate 18 Respiratory Effort Normal Blood Pressure 161/88 H Blood Pressure Mean 112 Pulse Ox 99 99 Oxygen Delivery Method Room Air Room Air 04/15/24 05:45 04/15/24 06:00 04/15/24 07:00 Temperature Temperature Source Pulse Rate 79 75 69 Respiratory Rate 18 18 14 Respiratory Effort Blood Pressure 118/77 115/75 116/74 Blood Pressure Mean 90 88 88 Pulse Ox 96 98 95 Oxygen Delivery Method Room Air Room Air Room Air Positive well nourished and well developed General Appearance ED: well developed and NAD HEENT Reports moist mucous membranes normocephalic and atraumatic Eyes General Eye ED: Yes normal appearance of both eyes Neck full ROM Chest Wall Chest: Negative for tenderness Resp normal respiratory effort and normal air movement Effort and Inspection: symmetric chest movement; Negative for respiratory distress Cardio regular rate, regular rhythm and no murmurs Peripheral Pulses: pulses 2+ throughout GI normal to inspection, nondistended, normoactive bowel sounds and non-tender Palpation: Negative for guarding or rebound tenderness present Extremity normal to inspection General Extremety ED: Negative for edema or tenderness General Extremity: Negative for edema Neuro oriented x3 and no sensory deficits noted Sensorium / Orientation: awake and alert Skin no rashes or lesions noted and no wounds <Saulo Rubin MD - Last Filed: 04/15/24 07:32> Physical Exam Const Vital Signs: 04/15/24 04:47 04/15/24 04:48 04/15/24 04:53 Temperature 98.7 F Temperature Source Oral Pulse Rate 75 Respiratory Rate 18 Respiratory Effort Normal Blood Pressure 161/88 H Blood Pressure Mean 112 Pulse Ox 99 99 Oxygen Delivery Method Room Air Room Air 04/15/24 05:45 04/15/24 06:00 04/15/24 07:00 Temperature Temperature Source Pulse Rate 79 75 69 Respiratory Rate 18 18 14 Respiratory Effort Blood Pressure 118/77 115/75 116/74 Blood Pressure Mean 90 88 88 Pulse Ox 96 98 95 Oxygen Delivery Method Room Air Room Air Room Air <Dr. Lyle Hunt, DO - Last Filed: 04/16/24 23:12> Heart Score History: Slightly/Non-Suspicious ECG: Normal Age: >45 - <65 years Risk Factors: 1 or 2 Risk Factors Troponin: </= Normal Limit Score: 2 MDM <Dr. Lyle Hunt, DO - Last Filed: 04/16/24 23:12> MDM MDM Narrative Medical decision making narrative: Interventions / MDM: Differential diagnosis: Diagnosis considered but do not suspect: N/A My EKG interpretation: Sinus rate of 75, no ST changes, T wave version anterior leads V2, small T waves V3 V4. Compared to EKG in the system 2020, new T wave version V2. Imaging independently reviewed and interpreted by myself: 1 view chest x-ray: No acute process. External documents reviewed: N/A Test considered but not ordered:N/A ED course: Patient subsiding chest pain. No recent cough. No recent PE risk factors. Cardiac workup initiated. Aspirin ordered. 0535: Initial troponin 3. Creatinine 0.74. Hemoglobin 14.7. Potassium 3.9. Chest x-ray negative. Currently symptom-free. She states if she lays down the symptoms could return. Her last stress test 5 years ago. Discussed will obtain a 2-hour delta troponin. Will continue to monitor symptoms in the ED. troponin negative, will discharge on PPI with outpatient follow-up. Patient signed out to morning physician. Re-evaluation: stable Disposition discussed with patient/family/significant other: Patient and significant other Case discussed with consulting clinician: N/A This note was generated with [employer] dictation software. It may contain incorrect words, spelling, and punctuation that were not noted in checking the note before signing. Lab Data Attestation: I reviewed the patient's lab results. Labs: Laboratory Results - last 24 hr 04/15/24 04/15/24 04:48 06:57 WBC 9.1 RBC 4.47 Hgb 14.7 Hct 43.3 MCV 96.9 MCH 32.9 H MCHC 33.9 RDW Std Deviation 48.3 H RDW Coeff of Cheryle 13.4 Plt Count 214 MPV 11.2 Immature Gran % (Auto) 0.300 Neut % (Auto) 66.3 Lymph % (Auto) 24.8 [place] % (Auto) 7.8 Eos % (Auto) 0.3 Baso % (Auto) 0.5 Absolute Neuts (auto) 6.0 Absolute Lymphs (auto) 2.26 Nucleated RBC % 0 Sodium 139 Potassium 3.9 Chloride 106 Carbon Dioxide 29.0 Anion Gap 4 L BUN 12 Creatinine 0.74 Estim Creat Clear Calc 88.60 Est GFR (MDRD) Af Amer 105 Est GFR (MDRD) Non-Af 87 BUN/Creatinine Ratio 16.3 Glucose 103 Calcium 10.0 Troponin I High Sens 3 5 Radiography Diagnostic Testing: Clinical Impression(s) from Imaging Studies Chest X-Ray 04/15/24 05:00 IMPRESSION: Chest with no acute disease. Electronically Signed: Sebastian Davies MD at 6:28 EST , <Saulo Rubin MD - Last Filed: 04/15/24 07:32> [facility] Lab Data Labs: Laboratory Results - last 24 hr 04/15/24 04/15/24 04:48 06:57 WBC 9.1 RBC 4.47 Hgb 14.7 Hct 43.3 MCV 96.9 MCH 32.9 H MCHC 33.9 RDW Std Deviation 48.3 H RDW Coeff of Cheryle 13.4 Plt Count 214 MPV 11.2 Immature Gran % (Auto) 0.300 Neut % (Auto) 66.3 Lymph % (Auto) 24.8 [place] % (Auto) 7.8 Eos % (Auto) 0.3 Baso % (Auto) 0.5 Absolute Neuts (auto) 6.0 Absolute Lymphs (auto) 2.26 Nucleated RBC % 0 Sodium 139 Potassium 3.9 Chloride 106 Carbon Dioxide 29.0 Anion Gap 4 L BUN 12 Creatinine 0.74 Estim Creat Clear Calc 88.60 Est GFR (MDRD) Af Amer 105 Est GFR (MDRD) Non-Af 87 BUN/Creatinine Ratio 16.3 Glucose 103 Calcium 10.0 Troponin I High Sens 3 5 Radiography Diagnostic Testing: Clinical Impression(s) from Imaging Studies Chest X-Ray 04/15/24 05:00 IMPRESSION: Chest with no acute disease. Electronically Signed: Sebastian Davies MD at 6:28 EST , Treatment and Re-Evaluation :: Dr. Rubin: Patient endorsed to me by Dr. Lyle Hunt to check a delta troponin on this patient that was experiencing chest pain. Delta troponin returned and is acceptable as initial troponin was 3 and second troponin at 2 hours was 5. Repeat examination at approximately 7:30 AM shows her resting comfortably on the cot, stating that she feels improved. Was recommended that she follow-up with her primary care provider. Return instructions to the emergency department were reviewed. Disposition is discharged home in stable condition. Discharge Plan Triage Chief Complaint: Chest Pain ED Provider: Lyle Hunt Dx/Rx/DC Orders Clinical Impression: Chest pain, History of tobacco use Instructions: ED Chest Pain, Uncertain Cause Prescriptions: New pantoprazole 40 mg tablet,delayed release (DR/EC) 40 mg PO DAILY Qty: 30 0RF No Action cholecalciferol (vitamin D3) 2,000 unit tablet 2,000 unit PO QWEEK sertraline 50 MG tablet 50 mg PO DAILY Primary Care Provider: Ramila Lerner Referrals: Madeleine Mendez [employer], [employer] [Non-Staff] - 3-5 Days Activity Restrictions/Additional Instructions: . Print Language: Swedish Disposition Disposition: Home, Self Care Discharge Date/Time: 04/15/24 07:39
--- NOTE | 2024-04-15 04:53 | EKG12_ITS ---
Test Reason : CP Blood Pressure : */* mmHG Vent. Rate : 75 BPM Atrial Rate : 75 BPM P-R Int : 174 ms QRS Dur : 78 ms QT Int : 390 ms P-R-T Axes : 25 2 25 degrees QTcB Int : 435 ms Normal sinus rhythm Normal ECG Confirmed by KD PATEL, RHINA ([id number]), market editor VALERIE TAYLOR ([id number]) on 04/16/2024 2:01:46 PM Referred By: TL Confirmed By: RHINA YI MD
[2024-04-15] MEDS: Aspirin 81 MG TAB.CHEW 324 MG PO (04:56)
--- NOTE | 2024-04-15 05:00 | RAD_ITS ---
INDICATION: chest pain EXAMINATION/TECHNIQUE: X-RAY - XR Chest 1 View COMPARISON: None. Findings: Single frontal view of the chest. LUNG PARENCHYMA: No acute focal airspace disease or mass lesion. PLEURA: No pleural effusion. No pneumothorax. HEART/GREAT VESSELS: Cardiomediastinal silhouette is unremarkable. BONES: Osseous structures are unremarkable for age. RAD/Chest 1 View (Portable) IMPRESSION: Chest with no acute disease. Electronically Signed: Sebastian Davies MD at 6:28 EST ,
[2024-04-15 05:02] LABS: Absolute Lymphocyte Count 2.26 X10^3/uL (0.83-4.51); Basophil# 0.05 X10^3/uL; Basophil% 0.5 % (0-1); Eosinophil# 0.03 X10^3/uL; Eosinophils% 0.3 % (0-5); Hematocrit 43.3 % (37-47); Hemoglobin 14.7 g/dL (12.0-15.0); Lymphocyte # 2.26 X10^3/ul (0.83-4.51); Lymphocyte % 24.8 % (19-41); Mean Corp Hgb Conc 33.9 g/dL (32-36); Mean Corpuscular Hgb 32.9 pg (27.0-32.0); Mean Corpuscular Volume 96.9 fL (81-99); Mean Platelet Vol. 11.2 fl (6.2-12.0); Monocyte# 0.71 X10^3/uL; Monocyte% 7.8 % (0-10); NRBC Flagged by Analyzer 0 % (0-5); Neutrophil # 6.02 X10^3/uL (2.7-7.7); Neutrophil % 66.3 % (47-70); Platelet Count 214 K/mm3 (150-450); RBC Distribution Width CV 13.4 % (11.6-14.6); RBC Distribution Width SD 48.3 fl (35.1-43.9); Red Blood Count 4.47 M/mm3 (4.2-5.4); White Blood Count 9.1 K/mm3 (4.4-11.0)
[2024-04-15 05:25] LABS: Anion Gap 4 (5-15); BUN 12 mg/dL (7-18); BUN/Creat Ratio 16.3 RATIO (10-20); Chloride 106 mmol/L (98-107); Creatinine, Serum 0.74 mg/dL (0.55-1.02); EST Glomerular Filtration Rate 87 mL/min (>60); Est Glom Filt Rate - Afr Amer 105 mL/min (>60); Glucose 103 mg/dL (74-106); Potassium 3.9 mmol/L (3.5-5.1); Sodium Level 139 mmol/L (136-145); Troponin-I HS (w/2H Reflex) 3 pg/mL (3.0-54.0)
[2024-04-15 05:45] VITALS: BP 118/77; PULSE 79; RESP 18; O2SAT 96
[2024-04-15 06:00] VITALS: BP 115/75; PULSE 75; RESP 18; O2SAT 98
[2024-04-15 06:59] LABS: Reflex Troponin-HS? (from REC) Y
[2024-04-15 07:00] VITALS: BP 116/74; PULSE 69; RESP 14; O2SAT 95
[2024-04-15 07:26] LABS: Troponin-I HS 5 pg/mL (3.0-54.0)
[2024-04-15 07:38] VITALS: BP 112/77; PULSE 64; RESP 16; TEMP 36.7; O2SAT 96
== END 2024-04-15 07:39 | disposition home or self-care (01) ==
PROVIDERS: Emergency Provider Emergency Medicine; PCP Nurse Practitioner Family; Visit Provider Emergency Medicine
DX: R07.9 Chest pain, unspecified (principal); F17.210 Nicotine dependence, cigarettes, uncomplicated; Z79.899 Other long term (current) drug therapy; Z86.73 Personal history of transient ischemic attack (TIA), and cerebral infarction without residual deficits
CPT/HCPCS: 71045; 80048; 84484; 85025; 93005; 99283; A4216